=== PATIENT | female | born 1985 | race African-American/Black ===

== ENCOUNTER 2017-08-18 21:09 | Emergency (ER) | payer MEDICAID ==
[~2017-08-18] VITALS: Ht 175.3 cm; Wt 120.7 kg
[2017-08-18 21:21] VITALS: BP 132/83
== END 2017-08-18 23:23 | disposition home or self-care (01) ==
LOC: ER 21:09
DX: N64.4 Mastodynia (principal); N60.49 Mammary duct ectasia of unspecified breast